=== PATIENT | female | born 1945 | race Caucasian/White ===

== ENCOUNTER 2024-12-26 12:45 | Outpatient (CLI) | payer MEDICARE, BC, SELFPAY | END 2024-12-26 12:46 | disposition home or self-care (01) | PROVIDERS: PCP Family Medicine; Visit Provider Orthopaedic Surgery Sports Medicine | DX: M25.512 Pain in left shoulder (principal); S46.912A Strain of unspecified muscle, fascia and tendon at shoulder and upper arm level, left arm, initial encounter; S43.085A Other dislocation of left shoulder joint, initial encounter; M19.012 Primary osteoarthritis, left shoulder; M25.412 Effusion, left shoulder; M25.712 Osteophyte, left shoulder; M79.602 Pain in left arm | CPT/HCPCS: 73221 ==

== ENCOUNTER 2025-01-03 12:44 | Outpatient (CLI) | payer MEDICARE, BC, SELFPAY | END 2025-01-03 12:45 | disposition home or self-care (01) | LOC: CT 12:46 | PROVIDERS: PCP Family Medicine; Visit Provider Orthopaedic Surgery Sports Medicine | DX: M19.012 Primary osteoarthritis, left shoulder (principal); Z01.818 Encounter for other preprocedural examination | CPT/HCPCS: 73200 ==

== ENCOUNTER 2025-02-01 06:36 | Day surgery (SDC) | payer MEDICARE, BC, SELFPAY ==
[2025-02-01] VITALS (36 sets, daily range): BP systolic 118–164; BP diastolic 60–103; PULSE 52–83; RESP 11–24; TEMP 36–36.4; O2SAT 90–99; BMI 32.1
[2025-02-01] MEDS: LACTATED RINGERS 1000 ML 1,000 ML 100 ML IV ×2 (07:15→10:01)
[2025-02-01] MEDS: ACETAMINOPHEN 500 MG TABLET 1000 MG PO ×3 (07:15→19:36)
[2025-02-01] MEDS: OXYCODONE (CR) 10 MG TAB.ER.12H PO (07:15)
[2025-02-01] MEDS: SODIUM CHLORIDE 0.9 % (FLUSH) 10 ML SYRINGE IVF (07:15)
--- NOTE | 2025-02-01 07:18 | W.PM.H&PU ---
History & Physical Update History & Physical Update H&P Reviewed and patient assessed: No changes noted
--- NOTE | 2025-02-01 07:30 | SUR.PREOP ---
TIME?OUT:?0730 PT/RN/MDA?VERIFICATION?OF?SURGICAL?SITE,?PROCEDURE,?AND?CONSENT OBTAINED?PRIOR?TO?INVASIVE?PROCEDURE.
[2025-02-01] MEDS: MIDAZOLAM HCL 1 MG/ML inj IVP (07:31)
[2025-02-01] MEDS: fentaNYL 100 MCG/2 ML inj IVP (07:31)
[2025-02-01] MEDS: TRANEXAMIC ACID 100 MG/ML INJ 1000 MG IV (08:00)
[2025-02-01] MEDS: CEFAZOLIN 2 GM in 0.9 % SODIUM CHLORIDE Mini-bag 100 ML IVPB ×3 (08:00→21:56)
--- NOTE | 2025-02-01 08:06 | CRLHL7_ITS ---
For Patients: As a result of the Cures Act, medical imaging exams and procedure reports are released immediately into your electronic medical record. You may view this report before your referring provider. If you have questions, please contact your health care provider. Indication: Postop Technique: Two views left shoulder Findings/Impression: Hardware from a left shoulder arthroplasty is in satisfactory position. Bone alignment is normal. No sign of acute fracture. Postop changes are within normal limits. Dictated by Masood Pavon MD @ 02/01/2025 11:34:23 AM (Electronically Signed)
--- NOTE | 2025-02-01 09:47 | P.NB_ITS ---
Nerve Block Nerve Block Time Seen by Provider: 07:35 Date Seen: 02/01/25 Type of block requested by surgeon for post-operative analgesia: supraclavicular Side: left Time out performed: Yes Verification of patient name: Yes Verification of date of : Yes Site marking: site marked Name of person performing procedure: [employer] Continuous monitoring Was continuous monitoring of O2 sat, B/P, marketing analytics lead, recorded every 15 minutes?: Yes Procedure Checklist: sterile prep, needles and gloves Ultrasound guided. Images saved: Yes Medications given in 5ml increments after negative aspiration: Marcaine %: 0.25 mL: 5 Needle gauge: 22 and Exparel mL: 10 Patient tolerated procedure well: Yes Block Charges Block Charge (with Pro Fee): Brachial Plexus Use of Ultrasound Machine for Block: Yes- US Guidance/pain block
--- NOTE | 2025-02-01 09:48 | P.ANES_ITS ---
Anesthesia Charges Start Date/Time Anesthesia Start Date: 02/01/25 Anesthesia Start Time: 07:39 Stop Date/Time Anesthesia Stop Date: 02/01/25 Anesthesia Stop Time: 10:03 Summary Extremes of Age - Over 70 or under 1: MDA Coding CPT Codes CPT Codes: ANESTH SHOULDER REPLACEMENT - 73181 ([id number]) P3 - PATIENT W/SEVERE SYS DISEASE, QK - UTILIZATION MANAGEMENT NURSE 2-4 CNCRNT ANES PROC, QX - SATELLITE TELEVISION INSTALLER SVC W/ MD MED DIRECTION Additional Codes: Summary - Extremes of Age - Over 70 or under 1: MDA ([id number])
--- NOTE | 2025-02-01 09:48 | W.ANESCHARGE ---
Anesthesia Charges Start Date/Time Anesthesia Start Date: 02/01/25 Anesthesia Start Time: 07:39 Stop Date/Time Anesthesia Stop Date: 02/01/25 Anesthesia Stop Time: 10:03 Summary Extremes of Age - Over 70 or under 1: MDA Coding CPT Codes CPT Codes: ANESTH SHOULDER REPLACEMENT - 36008 ([id number]) P3 - PATIENT W/SEVERE SYS DISEASE, QK - RAILWAY TRACK PLANT OPERATOR 2-4 CNCRNT ANES PROC, QX - GOLD PLATER SVC W/ MD MED DIRECTION Additional Codes: Summary - Extremes of Age - Over 70 or under 1: MDA ([id number])
--- NOTE | 2025-02-01 09:56 | P.ORPRC_ITS ---
Procedure Note Date of procedure: 02/01/25 Procedure: PREOPERATIVE DIAGNOSIS: 1. Left shoulder osteoarthrosis, primary, severe with poor rotator quality/integrity POSTOPERATIVE DIAGNOSIS: 1. Left shoulder osteoarthrosis,[ primary, severe with poor cuff tissue quality 2. Left long head of the biceps tendinopathy and tenosynovitis PROCEDURE: 1. Left reverse shoulder arthroplasty. 2. Left long head of biceps open tenodesis SURGEON: Matthew Ford MD. APPOINTMENT SPECIALIST: Zach EARLY; Beryl Dickerson - Of note, a skilled assistant professor of psychology was critical for this case to aid in patient positioning, tissue retraction, limb manipulation/positioning, retraction for glenoid exposure, which was challenging, awareness and protection of critical structures, and closure. ANESTHESIA: General plus supraclavicular block EBL: 100 ml IMPLANTS: DJ0 surgical Altivate humeral stem size 8 small shell, short with P2 porous coating vitamin E semi constrained neutral poly small socket insert RSP glenoid base plate P2 porous coating with 3 perimeter locking screws 32 neutral glenosphere with retaining screw COMPLICATIONS: None evident INDICATIONS: The patient is a pleasant 79-year-old female who has experienced severe left shoulder pain and difficulty with use. Workup included imaging w [facility] revealed severe osteoarthrosis along with concern for rotator cuff quality. Physical exam was consistent with associated pain. Given the deformity, the dysfunction, and the pain, and failure of nonoperative management, recommendation was made for surgery. DESCRIPTION OF PROCEDURE: Following a thorough discussion of risks, benefits, and alternatives, consent was obtained and the left shoulder was marked. The patient was brought to the operating room and placed supine on the operating table. Induction of anesthesia was undertaken. 2 g IV Ancef and 1 g tranexamic acid was administered within 1 hr of incision preoperatively. Appropriate time-out was performed identifying proper patient, site, and procedure. The operative extremity was prepped and draped in the appropriate sterile fashion using ChloraPrep after the patient was positioned in the lazy beach chair position with head in neutral alignment and all bony prominences well padded. A longitudinal incision was made for deltopectoral approach. Deltoid was retracted laterally. Cephalic vein was identified and retracted laterally as well. Vein was spared/protected throughout the case. The clavipectoral fascia was identified and divided longitudinally staying lateral to the conjoined tendon / coracoid. The conjoined tendon was protected with a blunt Hohmann. The long head of the biceps tendon was identified and the bicipital sheath released. The upper 1/4 of the pectoralis major was also released from its insertion. The long head of the biceps was tenodesed to the pectoralis major tendon. The remaining proximal tendon tissue was excised. The rotator cuff was inspected and found to have good integrity with the subscapularis but fair integrity with a supraspinatus], and a decision for a reverse shoulder arthroplasty was confirmed. The long head of biceps, of note, was significant flattened, thickened, with abundant tenosynovitis. A subscapularis cuff of tissue was left via tenotomy for later repair with the remaining subscapularis released in a subperiosteal fashion with the Bovie. This was tagged for later repair. The 3 sisters were cauterized. The upper subscapularis was released from the capsule with a curved Hewitt scissors towards the glenoid. The inferior subscapularis was divided from the capsular tissue on its caudal surface with particular caution for the axillary nerve. This was palpated anterior to the subscapularis both prior to and near the finish of the case. Inferior humeral head osteophytes were excised with caution taken throughout the case with regards to the axillary nerve. The humerus was dislocated, and humeral head cut completed. Then a protector plate was applied. We turned our attention to the glenoid. The humerus was retracted posteriorly. The subscap was protected anteriorly and the labrum/long head biceps origin was excised circumferentially. The capsule was released along the anterior and inferior portions of the glenoid cautiously with a Hess elevator being careful not to penetrate deep. The glenoid had appropriate exposure, and was prepared with the cannulated system with a target of approximately 5-10? of inferior tilt and neutral anteversion (patient had 6? of retroversion initially). Utilizing the match Point 3D printed guide, the guide pin was placed. The 3D printed jig removed and after placing the guide pin, the tap was placed followed by the glenoid reaming. The real base plate was opened, and inserted, and excellent compression/purchase was achieved with the central screw. Peripheral screws were then drilled, measured, and placed. The glenosphere was then placed consistent with the preoperative plan utilizing the above noted glenosphere. After securing the glenosphere with the locking, torque limited screw, attention was turned back to the humerus. A canal finder was placed followed by various reamers by hand. The real humeral stem was then opened and inserted with excellent metaphyseal fit and stability. Trial poly was placed and the shoulder reduced. Excellent reduction and stability achieved with appropriate tension on the conjoined tendon. At this stage, trial implants were removed, and the real implants inserted and the shoulder reduced. A 3 minute Betadine soak was performed followed by a thorough irrigation with normal saline. Subscapularis was repaired with #1 PDS to the cuff of tissue on the lesser tuberosity. Excellent reapproximation of tissue achieved. Hemostasis was found to be appropriate. The deltopectoral interval was reapproximated with 0 Vicryl, subcutaneous and subcuticular closure was then performed with number 2-0 Vicryl and 4-0 Monocryl, respectively. A skilled assistant professor of psychology was critical for this case to aid in patient positioning, tissue retraction, limb manipulation/positioning, retraction for glenoid exposure, which was challenging, awareness and protection of critical structures, and closure. PLAN: 1. Sling at all times for the operative upper extremity. 2. AROM of elbow, forearm, wrist, and digits as tolerated. 3. PT/OT consults for education and assistance. 4. Social consult for discharge planning. 5. 23 hr perioperative antibiotics. 6. Early ambulation, and SCDs for DVT prophylaxis. 7. Admit to the hospital for the above 8. Analgesics p.r.n.
--- NOTE | 2025-02-01 10:00 | P.ANES_ITS ---
Anesthesia Charges Start Date/Time Anesthesia Start Date: 02/01/25 Anesthesia Start Time: 07:39 Stop Date/Time Anesthesia Stop Date: 02/01/25 Anesthesia Stop Time: 10:03 Summary Extremes of Age - Over 70 or under 1: AGILE PROJECT MANAGER Coding CPT Codes CPT Codes: ANESTH SHOULDER REPLACEMENT - 84520 ([id number]) QK - LUSTER APPLICATOR 2-4 CNCRNT ANES PROC, P3 - PATIENT W/SEVERE SYS DISEASE, QX - AGILE PROJECT MANAGER SVC W/ MD MED DIRECTION Additional Codes: Summary - Extremes of Age - Over 70 or under 1: AGILE PROJECT MANAGER ([id number])
--- NOTE | 2025-02-01 10:00 | W.ANESCHARGE ---
Anesthesia Charges Start Date/Time Anesthesia Start Date: 02/01/25 Anesthesia Start Time: 07:39 Stop Date/Time Anesthesia Stop Date: 02/01/25 Anesthesia Stop Time: 10:03 Summary Extremes of Age - Over 70 or under 1: OPTICAL SALES ASSOCIATE Coding CPT Codes CPT Codes: ANESTH SHOULDER REPLACEMENT - 09682 ([id number]) QK - MOTOR GRADER ROUGH GRADE 2-4 CNCRNT ANES PROC, P3 - PATIENT W/SEVERE SYS DISEASE, QX - OPTICAL SALES ASSOCIATE SVC W/ MD MED DIRECTION Additional Codes: Summary - Extremes of Age - Over 70 or under 1: OPTICAL SALES ASSOCIATE ([id number])
[2025-02-01] MEDS: fentaNYL 100 MCG/2 ML inj 50 MCG IVP ×3 (10:19→11:15)
[2025-02-01] MEDS: HYDROmorphone 0.5 mg/0.5 ml inj IVP (10:36)
[2025-02-01] MEDS: KETOROLAC 15 MG/ML inj IVP (11:03)
[2025-02-01] MEDS: hydrOXYzine pamoate 25 MG CAPSULE PO (11:31)
--- NOTE | 2025-02-01 11:55 | SUR.PHASEI ---
patient met discharge criteria per anesthesia
[2025-02-01] MEDS: OXYCODONE 5 MG TABLET PO ×2 (14:24→19:36)
--- NOTE | 2025-02-01 14:49 | PC.NURSE ---
end of shift. pt has been pleasant. left should pain 5/10. she is getting po pain meds. IV is patent. dressing is C/D/I active ice is on. she is eating, drinking and voiding. family was here. she is up with sba with gait belt.
--- NOTE | 2025-02-01 17:13 | P.IMCN_ITS ---
Date of Consult Consult date: 02/01/25 Requesting Physician: Orthopedics Primary Care Provider: Arnel Stephens MD Consult Narrative Narrative: HOSPITALIST CONSULT Procedure: 1. Left reverse shoulder arthroplasty. 2. Left long head of biceps open tenodesis SURGEON: Matthew Ford MD. ANESTHESIA: General plus supraclavicular block EBL: 100 ml COMPLICATIONS: None evident The hospital medicine team was asked by the orthopedic surgery team to manage the patient's hypertension and hypothyroidism. There have been no perioperative complications. I have updated and reviewed the active medical problems, past medical history, past surgical history, social history, allergies and medications in our electronic EMR. This includes a cross reference to care everywhere in [facility] and with [facility] databases. PHYSICAL EXAM: CODE STATUS: FULL CODE CONSTITUTIONAL: Conversive, good historian. A/O. Knows setting and context. VITAL SIGNS: see record. HEENT: Normocephalic, atraumatic. PERRL, EOMI, conjunctivae pink, no scleral icterus. Ears and nose externally normal. Pharynx normal. NECK: No JVD. No carotid bruit, no thyromegaly, no adenopathy. CHEST: Clear to auscultation bilaterally HEART: S1 and S2 normal. ABDOMEN: Flat, soft, nontender. Normal bowel sounds. Moderately obese. EXTREMITIES: No edema. MUSCULOSKELETAL: right shoulder - SDI. NEURO: Cranial nerves intact. Mentation normal. Normal affect. SKIN: No rashes, petechiae, concerning changes PSYCHIATRIC: Mentation normal. INVESTIGATIONS: EMR Reviewed; Pre-OP Reviewed DISPOSITION: DVT: N/A GI: PO [facility] Medical History (Updated 02/01/25 @ 17:50 by Kaela Young MD) Osteoarthritis of left shoulder ?M19.012 - Primary osteoarthritis, left shoulder (ICD-10) Biceps tendinosis of left shoulder ?M67.814 - Other specified disorders of tendon, left shoulder (ICD-10) Arthritis of left acromioclavicular joint ?M19.012 - Primary osteoarthritis, left shoulder (ICD-10) Thumb pain ?M79.646 - Pain in unspecified finger(s) (ICD-10) Proximal phalanx fracture of finger ?S62.619A - Displaced fracture of proximal phalanx of unspecified finger, initial encounter for closed fracture (ICD-10) Complete rotator cuff tear of left shoulder ?M75.122 - Complete rotator cuff tear or rupture of left shoulder, not specified as traumatic (ICD-10) Hypertension ?I10 - Essential (primary) hypertension (ICD-10) Depression ?F32.A - Depression, unspecified (ICD-10) Breast cancer ?C50.919 - Malignant neoplasm of unspecified site of unspecified female breast (ICD-10) Surgical History (Updated 02/01/25 @ 17:49 by Kaela Young MD) 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) ?Z96.612 - Presence of left artificial shoulder joint (ICD-10) History of arthroplasty (2013) ?Z96.60 - Presence of unspecified orthopedic joint implant (ICD-10) History of right shoulder replacement (2021) ?Z96.611 - Presence of right artificial shoulder joint (ICD-10) History of open reduction and internal fixation (ORIF) procedure (1996) ?Z98.890 - Other specified postprocedural states (ICD-10) History of open reduction and internal fixation (ORIF) procedure (1991) ?Z98.890 - Other specified postprocedural states (ICD-10) Previous section (1976) ?Z98.891 - History of uterine scar from previous surgery (ICD-10) Family History Mother Osteoarthritis Grandfather Diabetes Sister Breast cancer Brother Stroke Social History (Updated 12/15/24 @ 13:34 by Marisol Phillips ~ [facility], [facility]) Narrative: former smoker (1989) What is your current living situation?: I presently have a place to live Problems where you live: no known problems In the past 12 months, utilities in danger of being shut off: no In past 12 months, lack of transportation kept you from medical appts, meetings, work, or getting things needed for daily living: no In the past 12 mos, have been you worried that your food would run out before you had money to buy more?: never true In the past 12 mos, the food you bought just didn't last and you didn't have money to buy more?: never true Smoking Status: Former smoker What tobacco products do you use: cigarettes Sm oking quit date/years: >15 years ago Do you use any of these nicotine containing products: None Second hand tobacco smoke exposure: No How often do you have a drink containing alcohol: monthly or less Alcohol type: beer, wine and hard liquor How many standard drinks containing alcohol do you have on a typical day: 1 or 2 How often do you have six or more drinks on one occasion: Never AUDIT-C Alcohol total score: 1 Non-prescribed substance use: denies use Caffeine: Yes Are you now , , , , never or living with a partner: Social isolation score (0-1 are the most socially isolated patients): 0 How often does anyone, including family, friends and others, physically hurt you : never How often does anyone, including family, friends and others, insult or talk down to you: never How often does anyone, including family, friends and others, threaten you with harm: never How often does anyone, including family, friends and others, scream or curse at you: never service: No Meds Home Medications and Allergies Home Medications ?Medication ?Instructions ?Recorded ?Confirmed ?Type amlodipine 2.5 mg tablet 2.5 mg PO DAILY 10/11/23 02/01/25 History irbesartan 300 mg tablet 300 mg PO DAILY 10/11/23 02/01/25 History amitriptyline 10 mg tablet 10 - 20 mg PO HS 12/15/24 02/01/25 History levothyroxine 125 mcg tablet 125 mcg PO DAILY 02/01/25 02/01/25 History (Synthroid) Allergies Allergy/AdvReac Type Severity Reaction Status Date / Time morphine Allergy Vomiting Verified 12/30/24 09:44 Exam Const: Vital Signs, click to edit/add: Vital Signs - 24 hr 02/01/25 06:45 02/01/25 07:30 02/01/25 09:58 Temperature 97 F L Pulse Rate 83 52 L 70 Pulse Rate [Right Pulse Oximeter] Respiratory Rate 16 12 12 Blood Pressure 147/94 H 119/67 140/73 H Blood Pressure [Ri ght Arm] Pulse Oximetry 95 97 95 Oxygen Delivery Me thod Room Air Nasal Cannula Room Air Oxygen Flow Rate 2 02/01/25 10:00 02/01/25 10:05 02/01/25 10:10 Temperature 97 F L 97 F L 97 F L Pulse Rate 67 66 63 Pulse Rate [Right Pulse Oximeter] Respiratory Rate 18 24 14 Blood Pressure 142/73 H 133/74 146/68 H Blood Pressure [Ri ght Arm] Pulse Oximetry 96 95 96 Oxygen Delivery Me thod Room Air Room Air Room Air Oxygen Flow Rate 02/01/25 10:15 02/01/25 10:20 02/01/25 10:25 Temperature 97 F L 97 F L 97 F L Pulse Rate 63 71 71 Pulse Rate [Right Pulse Oximeter] Respiratory Rate 16 18 18 Blood Pressure 143/79 H 143/85 H 164/103 H Blood Pressure [Ri ght Arm] Pulse Oximetry 98 98 98 Oxygen Delivery Me thod Room Air Room Air Room Air Oxygen Flow Rate 02/01/25 10:30 02/01/25 10:35 02/01/25 10:40 Temperature 97 F L 97 F L 97 F L Pulse Rate 65 61 60 Pulse Rate [Right Pulse Oximeter] Respiratory Rate 20 21 14 Blood Pressure 138/84 152/82 H 132/73 Blood Pressure [Ri ght Arm] Pulse Oximetry 98 98 98 Oxygen Delivery Me thod Room Air Room Air Room Air Oxygen Flow Rate 02/01/25 10:45 02/01/25 10:50 02/01/25 10:55 Temperature 97 F L 97 F L 97 F L Pulse Rate 60 59 L 75 Pulse Rate [Right Pulse Oximeter] Respiratory Rate 12 19 12 Blood Pressure 140/77 H 135/73 142/80 H Blood Pressure [Ri ght Arm] Pulse Oximetry 99 96 98 Oxygen Delivery Ma thod Room Air Room Air Room Air Oxygen Flow Rate 02/01/25 11:00 02/01/25 11:05 02/01/25 11:10 Temperature 97 F L 97 F L 97 F L Pulse Rate 70 69 74 Pulse Rate [Right Pulse Oximeter] Respiratory Rate 11 L 16 17 Blood Pressure 142/75 H 154/86 H 149/88 H Blood Pressure [Ri ght Arm] Pulse Oximetry 97 98 97 Oxygen Delivery Me thod Room Air Room Air Room Air Oxygen Flow Rate 02/01/25 11:15 02/01/25 11:20 02/01/25 11:25 Temperature 97 F L 97 F L 97 F L Pulse Rate 68 79 74 Pulse Rate [Right Pulse Oximeter] Respiratory Rate 12 12 18 Blood Pressure 145/79 H 142/76 H 138/88 Blood Pressure [Ri ght Arm] Pulse Oximetry 94 96 95 Oxygen Delivery Me thod Room Air Room Air Room Air Oxygen Flow Rate 02/01/25 11:30 02/01/25 11:35 02/01/25 11:40 Temperature 97 F L 97 F L 97 F L Pulse Rate 66 71 69 Pulse Rate [Right Pulse Oximeter] Respiratory Rate 12 12 12 Blood Pressure 149/82 H 143/78 H 139/78 Blood Pressure [Ri ght Arm] Pulse Oximetry 94 94 94 Oxygen Delivery Me thod Room Air Room Air Room Air Oxygen Flow Rate 02/01/25 11:57 02/01/25 12:01 02/01/25 12:06 Temperature 96.8 F L 96.8 F L 96.8 F L Pulse Rate 69 74 Pulse Rate [Right Pulse Oximeter] 74 Respiratory Rate 12 12 12 Blood Pressure 148/88 H 145/89 H Blood Pressure [Ri ght Arm] 148/88 H Pulse Oximetry 94 94 94 Oxygen Delivery Me thod Room Air Room Air Room Air Oxygen Flow Rate 2 02/01/25 12:15 02/01/25 12:30 02/01/25 12:45 Temperature Pulse Rate 70 75 67 Pulse Rate [Right Pulse Oximeter] Respiratory Rate 12 12 12 Blood Pressure 139/82 135/83 125/65 Blood Pressure [Ri ght Arm] Pulse Oximetry 90 94 93 Oxygen Delivery Me thod Room Air Room Air Room Air Oxygen Flow Rate 2 2 02/01/25 13:00 02/01/25 14:06 02/01/25 15:00 Temperature Pulse Rate 67 73 Pulse Rate [Right Pulse Oximeter] Respiratory Rate 12 12 16 Blood Pressure 132/74 133/77 Blood Pressure [Ri ght Arm] Pulse Oximetry 93 90 Oxygen Delivery Me thod Room Air Room Air Oxygen Flow Rate 2 02/01/25 15:00 02/01/25 15:00 02/01/25 16:00 Temperature 97.0 F L 97.0 F L Pulse Rate 72 69 Pulse Rate [Right Pulse Oximeter] Respiratory Rate 16 16 16 Blood Pressure 153/83 H 142/78 H Blood Pressure [Ri ght Arm] Pulse Oximetry 94 95 94 Oxygen Delivery Me thod Room Air Room Air Room Air Oxygen Flow Rate Assessment and Plan Assessment and plan (1) Status post reverse arthroplasty of left shoulder: Problem comment: Left reverse shoulder arthroplasty, left long head of biceps open tenodesis (02/01/25, Dr. Ford) Hospital medicine team is happy to follow the patient through to discharge. We are expecting a routine postoperative course. I have reconciled home medications and completed our part of the discharge. -I will hold antihypertensives as indicated per our practice standard Status: Acute (2) Hypertension: Problem comment: will have hold parameters on her ARB Status: Acute (3) Hypothyroidism: Problem comment: continue home meds Status: Acute
--- NOTE | 2025-02-01 19:07 | PC.NURSE ---
End of shift [id number]: Patient is pleasant and cooperative. VSS. RA. Afebrile this shift. Alert and oriented x4, tolerating a reg diet. Patient up to BR x2 voiding well and ambulating SBA. left should pain 2/10 Active Ice to OP site. dressing is C/D/I. SBA to BR. Bilateral plexi pulses.
[2025-02-01] MEDS: SENNOSIDES 1 TAB TABLET 2 TAB PO (21:56)
--- NOTE | 2025-02-01 22:42 | PC.NURSE ---
Patient vitally stable and walking to bathroom with SBA. Pain adequately managed with scheduled and PRN pain medications. IV antibiotics completed as ordered.
[2025-02-02 01:06] VITALS: PULSE 70; RESP 18; O2SAT 93
[2025-02-02] MEDS: ACETAMINOPHEN 500 MG TABLET 1000 MG PO ×2 (01:15→07:32)
[2025-02-02] MEDS: OXYCODONE 5 MG TABLET PO ×2 (03:30→07:32)
[2025-02-02 03:32] VITALS: BP 121/63; PULSE 62; RESP 16; TEMP 36.3; O2SAT 95
[2025-02-02] MEDS: CEFAZOLIN 2 GM in 0.9 % SODIUM CHLORIDE Mini-bag 100 ML IVPB (05:59)
--- NOTE | 2025-02-02 06:43 | PC.NURSE ---
Pt alert and oriented x3. Afebrile. Pt reports 1-4/10 pain in left shoulder, pain managed with cold pack, PRN and scheduled medication. Pt?s left shoulder dressing is CDI. Pt is voiding, tolerating a regular diet and reports passing gas. ?
[2025-02-02 07:06] LABS: Hematocrit 32.2 % (33.0-51.0); Hemoglobin* 10.4 gm/dL (12.0-16.0); Mean Corpuscular HGB Conc 32 gm/dL (32-36); Mean Corpuscular Hemoglobin 31 pg (26-34); Mean Corpuscular Volume 96 fL (80-100); Platelet Count* 279 K/uL (140-440); Red Blood Count 3.37 m/uL (4.00-5.20); White Blood Count* 9.63 K/uL (4.50-11.00)
[2025-02-02 07:07] LABS: Slide Review Reflex No
[2025-02-02 07:15] LABS: Sodium* 132 mmol/L (135-149)
[2025-02-02 07:18] LABS: Blood Urea Nitrogen* 15 mg/dL (7-30); Creatinine* 0.6 mg/dL (0.5-1.5); Est. Creatinine Clearance* 38.35; Estimated Glomerular Filt Rate 92 ml/min
[2025-02-02 07:55] VITALS: BP 121/63; PULSE 62; RESP 16; TEMP 36.3; O2SAT 95
[2025-02-02] MEDS: LEVOTHYROXINE 125 MCG TABLET PO (08:51)
[2025-02-02] MEDS: SENNOSIDES 1 TAB TABLET 2 TAB PO (08:52)
[2025-02-02] MEDS: IRBESARTAN 150 MG TABLET 300 MG PO (08:52)
[2025-02-02] MEDS: AMLODIPINE 5 MG TABLET 2.5 MG PO (08:52)
--- NOTE | 2025-02-02 09:28 | PM.ORPN ---
Subjective Subjective Date Seen: 02/02/25 Principal diagnosis: Status postop day 1 left reverse total shoulder arthroplasty Interval history: Patient reports doing well. No acute events over night. Had a difficult PACU course of 2 hours due to sharp increasing axillary pain. With a combination of many medications, this pain finally resolved. Had no breathing difficulty or SOB during this time. Pain managed with scheduled and PRN medications, ice. DVT prophylaxis: SCDs, walking. Denies fevers, chills, aches, N/V, CP, SOB/BLAS, or lightheadedness. Ortho Exam Narrative Exam Narrative: -Patient appears comfortable in recliner; no apparent acute distress. Family present. -Alert and oriented times 3 -Operative shoulder swollen; soft, supple tissues; no obvious erythema. Warmth appropriate -Surgical dressing clean, dry, intact; no obvious drainage, no erythematous streaking peripheral to the bandage -Bilateral calves soft and supple; no significant swelling, edema, tenderness, erythema, discoloration, warmth, or palpable cords -2+ radial pulse, intact dermatomes and myotomes distally (5/5 strength). Intact Axillary nerve. Demonstrates active shoulder abduction without significant discomfort. Const Vital Signs, click to edit/add: Vital Signs - 24 hr 02/01/25 09:58 02/01/25 10:00 02/01/25 10:05 Temperature 97 F L 97 F L 97 F L Pulse Rate 70 67 66 Pulse Rate [Right Pulse Oximeter] Respiratory Rate 12 18 24 Blood Pressure 140/73 H 142/73 H 133/74 Blood Pressure [Right Arm] Pulse Oximetry 95 96 95 Oxygen Delivery Method Room Air Room Air Room Air Oxygen Flow Rate 02/01/25 10:10 02/01/25 10:15 02/01/25 10:20 Temperature 97 F L 97 F L 97 F L Pulse Rate 63 63 71 Pulse Rate [Right Pulse Oximeter] Respiratory Rate 14 16 18 Blood Pressure 146/68 H 143/79 H 143/85 H Blood Pressure [Right Arm] Pulse Oximetry 96 98 98 Oxygen Delivery Method Room Air Room Air Room Air Oxygen Flow Rate 02/01/25 10:25 02/01/25 10:30 02/01/25 10:35 Temperature 97 F L 97 F L 97 F L Pulse Rate 71 65 61 Pulse Rate [Right Pulse Oximeter] Respiratory Rate 18 20 21 Blood Pressure 164/103 H 138/84 152/82 H Blood Pressure [Right Arm] Pulse Oximetry 98 98 98 Oxygen Delivery Method Room Air Room Air Room Air Oxygen Flow Rate 02/01/25 10:40 02/01/25 10:45 02/01/25 10:50 Temperature 97 F L 97 F L 97 F L Pulse Rate 60 60 59 L Pulse Rate [Right Pulse Oximeter] Respiratory Rate 14 12 19 Blood Pressure 132/73 140/77 H 135/73 Blood Pressure [Right Arm] Pulse Oximetry 98 99 96 Oxygen Delivery Method Room Air Room Air Room Air Oxygen Flow Rate 02/01/25 10:55 02/01/25 11:00 02/01/25 11:05 Temperature 97 F L 97 F L 97 F L Pulse Rate 75 70 69 Pulse Rate [Right Pulse Oximeter] Respiratory Rate 12 11 L 16 Blood Pressure 142/80 H 142/75 H 154/86 H Blood Pressure [Right Arm] Pulse Oximetry 98 97 98 Oxygen Delivery Method Room Air Room Air Room Air Oxygen Flow Rate 02/01/25 11:10 02/01/25 11:15 02/01/25 11:20 Temperature 97 F L 97 F L 97 F L Pulse Rate 74 68 79 Pulse Rate [Right Pulse Oximeter] Respiratory Rate 17 12 12 Blood Pressure 149/88 H 145/79 H 142/76 H Blood Pressure [Right Arm] Pulse Oximetry 97 94 96 Oxygen Delivery Method Room Air Room Air Room Air Oxygen Flow Rate 02/01/25 11:25 02/01/25 11:30 02/01/25 11:35 Temperature 97 F L 97 F L 97 F L Pulse Rate 74 66 71 Pulse Rate [Right Pulse Oximeter] Respiratory Rate 18 12 12 Blood Pressure 138/88 149/82 H 143/78 H Blood Pressure [Right Arm] Pulse Oximetry 95 94 94 Oxygen Delivery Method Room Air Room Air Room Air Oxygen Flow Rate 02/01/25 11:40 02/01/25 11:57 02/01/25 12:01 Temperature 97 F L 96.8 F L 96.8 F L Pulse Rate 69 69 Pulse Rate [Right Pulse Oximeter] 74 Respiratory Rate 12 12 12 Blood Pressure 139/78 148/88 H Blood Pressure [Right Arm] 148/88 H Pulse Oximetry 94 94 94 Oxygen Delivery Method Room Air Room Air Room Air Oxygen Flow Rate 02/01/25 12:06 02/01/25 12:15 02/01/25 12:30 Temperature 96.8 F L Pulse Rate 74 70 75 Pulse Rate [Right Pulse Oximeter] Respiratory Rate 12 12 12 Blood Pressure 145/89 H 139/82 135/83 Blood Pressure [Right Arm] Pulse Oximetry 94 90 94 Oxygen Delivery Method Room Air Room Air Room Air Oxygen Flow Rate 2 2 02/01/25 12:45 02/01/25 13:00 02/01/25 14:06 Temperature Pulse Rate 67 67 73 Pulse Rate [Right Pulse Oximeter] Respiratory Rate 12 12 12 Blood Pressure 125/65 132/74 133/77 Blood Pressure [Right Arm] Pulse Oximetry 93 93 90 Oxygen Delivery Method Room Air Room Air Room Air Oxygen Flow Rate 2 2 02/01/25 15:00 02/01/25 15:00 02/01/25 15:00 Temperature 97.0 F L Pulse Rate 72 Pulse Rate [Right Pulse Oximeter] Respiratory Rate 16 16 16 Blood Pressure 153/83 H Blood Pressure [Right Arm] Pulse Oximetry 94 95 Oxygen Delivery Method Room Air Room Air Oxygen Flow Rate 02/01/25 16:00 02/01/25 20:04 02/02/25 01:06 Temperature 97.0 F L Pulse Rate 69 Pulse Rate [Right Pulse Oximeter] 79 70 Respiratory Rate 16 18 Blood Pressure 142/78 H Blood Pressure [Right Arm] 125/70 Pulse Oximetry 94 95 Oxygen Delivery Method Room Air Room Air Oxygen Flow Rate 02/02/25 01:06 02/02/25 03:32 02/02/25 07:55 Temperature 97.4 F L Pulse Rate Pulse Rate [Right Pulse Oximeter] 62 62 Respiratory Rate 18 16 16 Blood Pressure Blood Pressure [Right Arm] 121/63 Pulse Oximetry 93 95 Oxygen Delivery Method Room Air Room Air Oxygen Flow Rate 02/02/25 07:55 02/02/25 07:55 Temperature 97.4 F L Pulse Rate Pulse Rate [Right Pulse Oximeter] 62 Respiratory Rate 16 16 Blood Pressure Blood Pressure [Right Arm] 121/63 Pulse Oximetry 95 95 Oxygen Delivery Method Room Air Room Air Oxygen Flow Rate 2 2 Assessment and Plan Assessment and plan (1) Status post reverse arthroplasty of left shoulder: Problem details: Left reverse shoulder arthroplasty, left long head of biceps open tenodesis (02/01/25, Dr. Ford) Hospital medicine team is happy to follow the patient through to discharge. We are expecting a routine postoperative course. I have reconciled home medications and completed our part of the discharge. -I will hold antihypertensives as indicated per our practice standard Status: Acute (2) Hypertension: Problem details: will have hold parameters on her ARB Status: Acute (3) Hypothyroidism: Problem details: continue home meds Status: Acute Plan - Complete 23 hour perioperative antibiotics. - PT/OT consult for education and assistance. - Social work consult for discharge planning - Prescribed analgesics as needed - DVT prophylaxis: walking, and SCDs - Difficult to know the etiology of the axillary pain postop. The Supraclavicular block does not cover the axillary region which could result in pain in this area. Reassuring to see that the pain is no longer present in this sharp manner. She only has some aching discomfort in this region. - Anticipation is for discharge to home with family/friends today 02/02/25 if the patient remains medically stable, pain is controlled, and they are safe with mobilization.
--- NOTE | 2025-02-02 11:34 | PC.NURSE ---
Discharge. pt has been very pleasant. Pt alert and oriented x3. Afebrile. Pt reports 3-4/10 pain in left shoulder, active ice and po pain meds given. . Pt?s left shoulder dressing is C/D/I. Pt is voiding, tolerating a regular diet and reports passing gas. ?SL is patent. OT worked with her. went over discharge packet with pt and family. went over medications, appointments, education and instructions. pt left with 2 ice. she went over and signed personal belonging sheet. she got a w/c ride to her car.
== END 2025-02-02 10:45 | disposition home or self-care (01) ==
LOC: OR 06:40 → MEDSURG 06:40
PROVIDERS: PCP Family Medicine; Visit Provider Orthopaedic Surgery Sports Medicine
PROC: 0RRJ0JZ Replacement of Right Shoulder Joint with Synthetic Substitute, Open Approach (ICD-10-PCS; CPT 23472; principal; 2025-02-01 07:45)
DX: M19.012 Primary osteoarthritis, left shoulder (principal); M75.22 Bicipital tendinitis, left shoulder; M75.122 Complete rotator cuff tear or rupture of left shoulder, not specified as traumatic; G89.18 Other acute postprocedural pain; I10 Essential (primary) hypertension; E03.9 Hypothyroidism, unspecified
CPT/HCPCS: 23472; 23430; 01638; 36415; 73030; 76942; 82565; 84132; 84295; 84520; 85027; 97165; 97535; 99100; A9270; C1713; C1776; J0330; J0665; J0666; J0690; J1100; J1171; J1885; J2250; J2405; J2704; J3010; J3490; J7120; L3670

== ENCOUNTER 2025-04-21 13:15 | Outpatient (RCR) | payer MEDICARE, BC, SELFPAY ==
--- NOTE | 2024-12-21 16:04 | OT.OPOE ---
OT Outpatient Ortho Eval OT Outpatient Ortho Eval* Start: 12/19/24 11:36 Freq: Status: Active Protocol: Document 12/21/24 09:04 AMB (Rec: 12/21/24 15:59 AMB [id number]) E-signed By Maria Burch, OTR/L, CLT, PSYCH NP OT OP Ortho Eval Details Complexity Complexity Low Insurance Information Insurance Information Blue Cross/Blue Shield, Medicare B Insurance Information Comments MC cert due 03/21/25 Outpatient History/Precautions Current Condition/Medical Diagnosis Referring Provider Dr Ford Medical Diagnoses M79.646 pain in left thumb S62.619 Displaced fx of LUE thumb P1 Date of Onset 12/12/24 Other Conditions PMH copied from ortho chart: Active Problems (Updated 12/16 @ 08:58 by Matthew Ford MD) Complete rotator cuff tear of left shoulder (Acute) M75.122 - Complete rotator cuff tear or rupture of left shoulder, not specified as traumatic (ICD-10) Proximal phalanx fracture of finger (Acute) S62.619A - Displaced fracture of proximal phalanx of unspecified finger, initial encounter for closed fracture (ICD-10) Thumb pain (Acute) M79.646 - Pain in unspecified finger(s) (ICD-10) Left shoulder pain (Acute) M25.512 - Pain in left shoulder (ICD-10) Cough (Acute) R05.9 - Cough, unspecified ( ICD-10) Acute bacterial sinusitis ( Acute) J01.90 - Acute sinusitis, unspecified (ICD-10) B96.89 - Other specified bacterial agents as the cause of diseases classified elsewhere (ICD-10) Medical History (Updated 12/16 @ 08:58 by Matthew Ford MD) Hypertension I10 - Essential (primary) hypertension (ICD-10) Depression F32.A - Depression, unspecified (ICD-10) Breast cancer C50.919 - Malignant neoplasm of unspecified site of unspecified female breast (ICD -10) Surgical History (Updated @ 13:29 by Marisol Phillips ~ [facility], [facility]) History of arthroplasty (2013) Z96.60 - Presence of unspecified orthopedic joint implant (ICD-10) History of right shoulder replacement (2021) Z96.611 - Presence of right artificial shoulder joint (ICD -10) History of open reduction and internal fixation (ORIF) procedure (1996) Z98.890 - Other specified postprocedural states (ICD-10) History of open reduction and internal fixation (ORIF) procedure (1991) Z98.890 - Other specified postprocedural states (ICD-10) Previous section ( 1976) Z98.891 - History of uterine scar from previous surgery ( ICD-10) Medical/Functional History Medical History Reviewed Yes Prior Level of Function/Mobility Prior to thumb fracture 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 Social History Employment Status Retired Hobbies Knitting, [employer] Enjoys walking and swimming. Ortho Subjective Subjective Subjective Pt states she was walking at the [facility] on 12/12/24 when she slipped and fell onto her left arm/hand. Pt states she's been having more pain in her shoulder than her thumb. 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 Pt states she just lost her in August and she lives alone, so things have been difficult for her due to shoulder pain and fx of her thumb with brace . Pt states she has average pain in her LUE at 4-5/10, always worse in her shoulder than her thumb. 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 Goniometric Comments Goniometric Comments Goniometric Comments 12/21/24 AROM Of LUE is limited at the shoulder due to likely RCT, WNL at the elbow and limited at the forearm, wrist and hand. AROM of the LUE forearm: Pro/Sup: 70/70 Wrist: Flex/Ext: 35/30 UD/RD: 13/10 Composite fist to -3cm from tip of MF to DPC. AROM of thumb not measured yet, too early. OT Objective Data Hand Hand Dominance Right Observations/Posture/Limb Appearance Objective Observations 12/21/26 Pt has bruising in her left thumb P1 and mild swelling throughout the thumb. Juan Alberto deformity in the thumb base likely indicates significant CMC OA as well. OT Problems Problems Problems Decreased Strength,Decreased Range of Motion,Decreased Dexterity,Pain,Decreased Coordination,Lifting,Gripping, Pinching Other Problems Opening Containers,Dressing, Computer,Fasteners,Sleeping Patient Potential Good Assessment Assessment Assessment Pt is a very pleasant 79yo referred to OT for eval and treat and custom orthosis for protective healing of the LUE thumb P1 fx. Pt demonstrates pain, limited ROM, swelling, and weakness in her LUE which limits her ability to get dressed, open containers, lift and carry. Pt will benefit from skilled OT intervention for custom orthosis as well as TE and TA, self care for hand mobility and eventually strengthening. Occupational Therapy Treatment Plan - OP Potential Rehabilitation Potential Good Set Goals Goals Set with Patient Yes Goals Goals 1. Pt will be independent and compliant with HEP in order to resume full, pain-free use of the involved UE. 3 weeks 2. Pt will demonstrate full, pain-free AROM of the involved UE in order to improve ability to grasp and hold. 6 weeks 3. Pt will demonstrate pain- free estate planning paralegal and pinch strength comparable to the uninvolved side in order to improve functional grasp, hold, reach, and lifting ability needed to complete self-care, leisure tasks, and work activities. 8 weeks. Target Date 03/20/25 Treatment Plan Treatment Plan Evaluation,Edema Control,Joint Mobilization,Manual Therapy, Splinting,Therapeutic Exercise ,Therapeutic Activities,Self Care/Home Management,Education Expected Frequency 1-2x Week Expected Duration 8-10 Weeks Home Program Home Program Home Program Initiated Home Program Specifics Custom orthosis to be worn at all times during activity, ok to remove for hygiene. Certification Certification Statement I Certify That: Therapy Services Provided, Therapy Plan Established, Therapy Plan Reviewed Certification Information Clinic ID # [id number] Initial Certification Date 12/21/24 Recertification Due Date 03/21/25 Provider Signature Required Yes Provider Signature Shows Agreement With POC & Medical Necessity Physician NPI Number Write NPI# Here Physician Comment/Change Comment or Changes Physician Signature & Date Requested Please Sign/Date Here
== END 2025-08-19 23:59 | disposition home or self-care (01) ==
PROVIDERS: PCP Family Medicine; Visit Provider Orthopaedic Surgery Sports Medicine
DX: M79.646 Pain in unspecified finger(s) (principal); S62.619D Displaced fracture of proximal phalanx of unspecified finger, subsequent encounter for fracture with routine healing; Z51.89 Encounter for other specified aftercare
CPT/HCPCS: 97035; 97110; 97140; 97165; 97535; L3808; X5282

== ENCOUNTER 2025-05-15 09:45 | Outpatient (RCR) | payer MEDICARE, BC, SELFPAY ==
--- NOTE | 2025-02-14 16:30 | PT.OPEX ---
PT [place] Outpatient Eval PT [facility] Outpatient Eval Start: 02/14/25 16:00 Freq: Status: Active Protocol: Document 02/14/25 16:01 FAHEEM (Rec: 02/14/25 16:26 FAHEEM [email or web address]) E-signed By Cindi Blackmon DPT Physical Therapy Outpatient Evaluation Insurance Information Recert Due Date 05/15/25 Insurance Name Medicare B,[employer] Medical Diagnosis s/p L RSA 02/01/25 Treating Diagnosis s/p L RSA 02/01/25 with L shoulder pain, impaired L shoulder ROM, impaired L shoulder mobility/strength, impaired functional use of L shoulder/UE, currently restricted with L UE sling after surgery. Subjective Subjective Patient reports chronic L shoulder pain, limited ROM, weakness. States she had a fall back in Nov with L thumb fx. She saw Dr Ford for her thumb and also reported some L shoulder issues. After assessment of her shoulder, he recommended L shoulder surgery. Patient now s/p L reverse TSA 02/01/25. She has been using L UE sling since her surgery. She had follow up with CHIQUI Rueda last week. Per patient, Mohit states she can take her sling off some at home and use her L UE some, but gently. Patient is also doing hand/wrist/elbow ROM and shoulder codmans. She reports losing her balance a bit when out with her granddaughter on the stairs. She ended up falling into the railing and leaning against her L upper arm. States it was quite painful when it happened. She took a pain med , iced, and rested. Patient reports this happened on Thursday, she is feeling ok today. There is a small area of redness on her upper arm where she scraped it against the railing. Pain rated 0-3/ 10. Sleeping ok. Using tylenol, oxy, ibuprofen for med. Icing regularly. Date of Last Physician Visit 02/09/25 Date of Surgery (If applicable) 02/01/25 Current Work Status Retired Precautions Treatment Precautions/Contraindications sling x 6 weeks, ok to have off some at home, no ER past neutral x 6 weeks Assessment Assessment/Impression Patient is s/p L RSA 02/01/25 with L shoulder pain, impaired L shoulder ROM, impaired L shoulder mobility/strength, impaired functional use of L shoulder/UE, currently restricted with L UE sling after surgery. Pain range 0-3 /10. Patient is using pain meds, tylenol, ibuprofen as needed. Icing regularly. She is using her L UE sling most of the time, off some at home. Reports using L shoulder/UE gently per PA recommendation. Patient with hx of R RSA about 3 years ago with excellent results. R shoulder AROM/strength WFL. L shoulder PROM: flex 100 degrees, scap 85 degrees, IR 50 degrees, ER to neutral. Strength testing deferred at this time. Incision is closed , healing nicely. Reviewed current restrictions/ precautions, use of L UE sling . patient expressed understanding. Performed hand /wrist/elbow ROM and L shoulder codmans. Patient to continue with her HEP. Patient would benefit from skilled PT for pain/sx management, improved L shoulder ROM, improved L shoulder/UE mobility/strength, return to functional use of L shoulder/UE, and establishment of HEP. Plan of Care Rehabilitation Potential Good Physical Therapy Goals 1. Decrease L shoulder pain to less than/equal to 3/10 with daily activities and with the progression of PT activities over the next 6-8 weeks. 2. Improve L shoulder PROM to WFL over the next 6-8 weeks to prepare for return to functional use of L shoulder/UE. 3. Improve L shoulder AROM to WFL over the next 10-12 weeks for return to functional use of L shoulder/ UE with daily/leisure activities. 4. Improve L shoulder/UE strength over the next 10-12 weeks for return to full functional use of L shoulder/UE with daily/ leisure activities. 5. Patient will be I with HEP within 12 weeks for progression toward above goals, ongoing self management of pain/sx, ongoing self improvements in ROM/strength/function, and for return to full functional use of L shoulder/UE with daily activities. Coordination/Communication With Referral Source Treatment Plan/Direct Interventions Manual Therapy,Therapeutic Exercises Frequency/Duration 2x/week Patient Will Be Discharged From Therapy Completion of LTG(s),Skills Plateau,Independent w/HEP, Independently Progressing Evaluation Billing Untimed Code Treatment Minutes 26 Complexity Moderate Certification Information Initial Certification Date 02/14/25 Ending Certification Date 05/15/25 Provider Signature Required Yes Provider Signature Shows Agreement With POC & Medical Necessity Physician NPI Number Write NPI# Here Physician Comment/Change : Physician Signature & Date Requested Please Sign/Date Here
== END 2025-09-12 23:59 | disposition home or self-care (01) ==
PROVIDERS: PCP Family Medicine; Visit Provider Orthopaedic Surgery Sports Medicine
DX: Z47.1 Aftercare following joint replacement surgery (principal); M25.512 Pain in left shoulder; Z96.612 Presence of left artificial shoulder joint; Z51.89 Encounter for other specified aftercare
CPT/HCPCS: 97110; 97140; 97162